=== PATIENT | female | born 1940 | race American Indian/Alaskan Native ===

== ENCOUNTER 2019-03-20 11:57 | Emergency (ER) | payer MEDICARE ==
--- NOTE | 2019-03-20 13:01 | Event Note ---
ED Screening Note Date of service: 03/20/19 Time: 12:58 ED Screening Note: This is a 78 y.o. F. that presents to the ER with low back pain, shoulders, and BLE pain for 1 week. PMH of HTN, DM, and chronic back pain. Denies recent fall/injury This initial assessment/diagnostic orders/clinical plan/treatment(s) is/are subject to change based on patients health status, clinical progression and re- assessment by fellow clinical providers in the ED. Further treatment and workup at subsequent clinical providers discretion. Patient/guardian urged not to elope from the ED as their condition may be serious if not clinically assessed and managed. Initial orders include:
[2019-03-20] MEDS ORDERED: ZOFRAN IM ONE (14:58)
[2019-03-20] MEDS ORDERED: MORPHINE IM ONE (14:58)
--- NOTE | 2019-03-20 15:02 | Emergency Department Report ---
<VLAD DILLON - Last Filed: 03/20/19 17:54> ED Back Pain/Injury HPI - General Chief Complaint: Back Pain/Injury Stated Complaint: BACK/LEG/SHOULDER PAIN Time Seen by Provider: 03/20/19 12:57 Source: patient Limitations: No Limitations - History of Present Illness Initial Comments: Patient is 78 years old female with history of hypertension and diabetes and previous history of back surgery. Patient presented to the ER complaining of lower back pain for one week. Patient denied any recent history of trauma, fever, weight loss, bowel or bladder incontinence. She stated that her pain is similar to her symptoms before she had her surgery. MD Complaint: back pain -: week(s) - Related Data Previous Rx's Medication Instructions Recorded Last Taken Type HYDROcodone/APAP 5-325 [Alta 1 each PO Q6HR PRN #14 tablet 03/20/19 Unknown Rx 5/325] Ondansetron [Zofran Odt] 4 mg PO Q8HR PRN #14 tab.rapdis 03/20/19 Unknown Rx Allergies Allergy/AdvReac Type Severity Reaction Status Date / Time No Known Allergies Allergy Unverified 03/20/19 12:01 ED Review of Systems Comment: All other systems reviewed and negative Constitutional: denies: chills, fever Respiratory: denies: cough, shortness of breath, SOB with exertion, SOB at rest Cardiovascular: denies: chest pain, palpitations Gastrointestinal: denies: abdominal pain, nausea, vomiting Musculoskeletal: back pain ED Past Medical Hx - Past Medical History Previous Medical History?: No Hx Hypertension: Yes Hx Diabetes: Yes Additional medical history: back pain h/o surgery - Surgical History Past Surgical History?: No Additional Surgical History: Back surgery - Social History Smoking Status: Never Smoker Substance Use Type: None - Medications Home Medications: Home Medications Medication Instructions Recorded Confirmed Last Taken Type HYDROcodone/APAP 5-325 [Alta 1 each PO Q6HR PRN #14 tablet 03/20/19 Unknown Rx 5/325] Ondansetron [Zofran Odt] 4 mg PO Q8HR PRN #14 tab.rapdis 03/20/19 Unknown Rx ED Physical Exam - General Limitations: No Limitations General appearance: alert, in no apparent distress - Head Head exam: Present: atraumatic, normocephalic, normal inspection - Eye Eye exam: Present: normal appearance, PERRL - ENT ENT exam: Present: normal exam, normal orophraynx, mucous membranes moist - Neck Neck exam: Present: normal inspection, full ROM. Absent: tenderness, meningismus, lymphadenopathy, thyromegaly - Respiratory Respiratory exam: Present: normal lung sounds bilaterally - Cardiovascular Cardiovascular Exam: Present: regular rate, normal rhythm, normal heart sounds - GI/Abdominal GI/Abdominal exam: Present: soft, normal bowel sounds. Absent: distended, tenderness, guarding, rebound, rigid, organomegaly, mass, bruit, pulsatile mass, hernia - Extremities Exam Extremities exam: Present: normal inspection, full ROM, normal capillary refill. Absent: pedal edema, calf tenderness - Back Exam Back exam: Present: normal inspection, full ROM. Absent: CVA tenderness (R), CVA tenderness (L), muscle spasm, paraspinal tenderness, vertebral tenderness - Neurological Exam Neurological exam: Present: alert, oriented X3, CN II-XII intact, normal gait. Absent: abnormal gait, motor sensory deficit - Psychiatric Psychiatric exam: Present: normal mood - Skin Skin exam: Present: warm, intact, normal color ED Disposition Disposition: DC- TO HOME OR SELFCARE Is pt being admited?: No Condition: Stable Instructions: Acute Low Back Pain (ED) Prescriptions: HYDROcodone/APAP 5-325 [Alta 5/325] 1 each PO Q6HR PRN #14 tablet PRN Reason: Pain Ondansetron [Zofran Odt] 4 mg PO Q8HR PRN #14 tab.rapdis PRN Reason: Nausea And Vomiting Referrals: PRIMARY CARE,MD [Primary Care Provider] - 3-5 Days <VIANCA BALTAZAR - Last Filed: 03/20/19 20:10> ED Review of Systems ROS: Stated complaint: BACK/LEG/SHOULDER PAIN Other details as noted in HPI ED Medical Decision Making - Radiology Data Radiology results: report reviewed Patient: ETHAN BECERRA MR#: [id number] : 1940 Acct:[id number] Age/Sex: 78 / F ADM Date: 03/20/19 Loc: ED Attending Dr: Ordering Physician: VLAD DILLON Date of Service: 03/20/19 Procedure(s): CT lumbar spine wo con Accession Number(s): [id number] cc: VLAD DILLON CT lumbar spine wo con INDICATION / CLINICAL INFORMATION: 78 years Female; back pain. TECHNIQUE: Axial CT images of the lumbar spine were obtained after administration of intrathecal contrast. Sagittal and coronal reformatted images were produced. All CT scans at this location are performed using CT dose reduction for ALARA by means of automated exposure control. COMPARISON: None available. FINDINGS: POST-SURGICAL CHANGES: Partial, bilateral hemilaminectomies have been performed at L4. ALIGNMENT: No significant abnormality. VERTEBRAE: No signs of fracture. Vertebral bodies are grossly normal in height throughout. Mild to moderate facet hypertrophy seen bilaterally at L3-4, L4-5, and L5-S1. INTERVERTEBRAL DISCS: Disc space narrowing noted L4-5. Broad-based left paracentral disc protrusion seen at this level as well. Mild foraminal narrowing noted bilaterally. Small left paracentral disc protrusion seen at L5-S1, without significant sequela. PARASPINAL SOFT TISSUES: Paraspinous muscular atrophy noted. ADDITIONAL FINDINGS: Small, presumed stones seen in the left kidney, measuring 3 mm in maximum dimension. Scattered diverticula seen in the visualized colon. IMPRESSION: 1. No signs of discitis or epidural fluid collection. 2. Degenerative and postoperative changes of the lumbar spine as described above. 3. Nephrolithiasis noted on the left. Signer Name: Dirk Black MD, III Signed: 03/20/2019 6:09 PM Workstation Name: [id number] Transcribed By: HR Dictated By: Dirk Black MD Electronically Authenticated By: Dirk Black MD Signed Date/Time: 03/20/191808 DD/ 03 TD/TT: Critical care attestation.: If time is entered above; I have spent that time in minutes in the direct care of this critically ill patient, excluding procedure time.
--- NOTE | 2019-03-20 18:13 | Cat Scan Report ---
CT lumbar spine wo con INDICATION / CLINICAL INFORMATION: 78 years Female; back pain. TECHNIQUE: Axial CT images of the lumbar spine were obtained after administration of intrathecal contrast. Sagi ttal and coronal reformatted images were produced. All CT scans at this location are performed using CT dose reduction for ALARA by means of automated exposure control. COMPARISON: None available. FINDINGS: POST-SURGICAL CHANGES: Partial, bilateral hemilaminectomies have been performed at L4. ALIGNMENT: No significant abnormality. VERTEBRAE: No signs of fracture. Vertebral bodies are grossly normal in height throughout. Mild to m oderate facet hypertrophy seen bilaterally at L3-4, L4-5, and L5-S1. INTERVERTEBRAL DISCS: Disc space narrowing noted L4-5. Broad-based left paracentral disc protrusion s een at this level as well. Mild foraminal narrowing noted bilaterally. Small left paracentral disc protrusion seen at L5-S1, without significant sequela. PARASPINAL SOFT TISSUES: Paraspinous muscular atrophy noted. ADDITIONAL FINDINGS: Small, presumed stones seen in the left kidney, measuring 3 mm in maximum dimens ion. Scattered diverticula seen in the visualized colon. IMPRESSION: 1. No signs of discitis or epidural fluid collection. 2. Degenerative and postoperative changes of the lumbar spine as described above. 3. Nephrolithiasis noted on the left. Signer Name: Dirk Black MD, III Signed: 03/20/2019 6:09 PM Workstation Name: [id number]
== END 2019-03-20 20:30 | disposition home or self-care (01) ==
LOC: ED 11:57
DX: M96.89 Other intraoperative and postprocedural complications and disorders of the musculoskeletal system (principal); N20.0 Calculus of kidney; I10 Essential (primary) hypertension; E11.9 Type 2 diabetes mellitus without complications; Z98.890 Other specified postprocedural states
CPT/HCPCS: 72131; 96372; 99283; J2270; J2405